=== PATIENT | male | born 1955 | race Caucasian/White ===

== ENCOUNTER → 2017-05-01 | Outpatient (CLI) | payer MEDICAID ==
[~2017-05-01] MED LIST: BISOPROLOL 5MG T5 MG PO; FUROSEMIDE80 M1 PO; GABAPENTIN300 M1 PO; GLIMEPIRIDE 4MG4 MG PO; HYDROCHLOROTHIA25 M1 PO; IBU-8800 MG PO; JANUMET 50-1,01 EACH PO; JANUMET XR1 TER PO; JANUVIA100 MG PO; KLOR-CON M2020 ME1 PO; LISINOPRIL20 MG PO; LORTAB 5/500 501 TAB PO; LORTAB 500 MG-11 TAB PO; MEDROL 4MG. DOSE4 MG PO; METFORMIN 500M500 M1 PO; NOVAPLUS SC; NOVOLIN 70/30 710 ML; OXYCODONE HCL15 MG PO; WARFARIN SOD5 M1 PO
[2017-05-01 10:38] LABS: BUN 52 mg/dL (7-18)
[2017-05-01 10:39] LABS: GFR (ESTIMATED) 36 ML/MIN (>60)
--- NOTE | 2017-05-01 16:20 | RADIOLOGY REPORT PS360 ---
CHEST(2 VIEWS-NOT PORTABLE) HISTORY: HTN,SOB,TYPE II DM short of breath Patient Age: 62 years: Male Ordering Physician: Srinivasan Sparks MD TECHNIQUE: 2 view chest COMPARISON :Portable chest 05/07/2013 FINDINGS No discrete acute findings. Slight coarsening markings suggesting mild chronic changes but nothing definitely acute. No focal pneumonia. No pleural effusion. No pneumothorax. Heart ce and mediastinal structures appear stable. Borderline cardiomegaly. Hypertrophic First rib ends bilaterally account for density here chest wall unremarkable otherwise. T-spine intact IMPRESSION: 1. stable chest with nothing definitely acute
== END ==
LOC: LAB 10:02
PROVIDERS: Internal Medicine
DX: E11.42 Type 2 diabetes mellitus with diabetic polyneuropathy (principal); E66.01 Morbid (severe) obesity due to excess calories; I10 Essential (primary) hypertension; I48.2 Chronic atrial fibrillation; R60.0 Localized edema; R06.02 Shortness of breath

== ENCOUNTER → 2017-06-05 | Outpatient (CLI) | payer MEDICAID | LOC: LAB 10:26 | DX: I10 Essential (primary) hypertension (principal); G47.62 Sleep related leg cramps; I48.2 Chronic atrial fibrillation ==

== ENCOUNTER → 2017-07-08 | Outpatient (CLI) | payer MEDICAID ==
[~2017-07-08] MED LIST changes: +JENTADUETO1 TA1 PO
[2017-07-08 09:57] LABS: BUN 74 mg/dL (7-18); GFR (ESTIMATED) 34 ML/MIN (>60)
== END ==
LOC: LAB 08:25
PROVIDERS: Internal Medicine
DX: E78.5 Hyperlipidemia, unspecified (principal); I48.2 Chronic atrial fibrillation; N18.9 Chronic kidney disease, unspecified; I10 Essential (primary) hypertension; E11.9 Type 2 diabetes mellitus without complications

== ENCOUNTER 2017-07-10 10:36 | Emergency (ER) | payer MEDICAID ==
[~2017-07-10] VITALS: Ht 195.6 cm; Wt 213.2 kg
[~2017-07-10 10:36] MED LIST changes: -JENTADUETO1 TA1 PO
--- OUTSIDE RECORDS SUMMARY | 2017-07-10 11:03 | External Medical Summary Rpt | CCD ---
Author Author Conduent Organization Condu[employer] Address Unknown Phone Unavailable Purpose Continuity of Care Document - through 2016
--- OUTSIDE RECORDS SUMMARY | 2017-07-10 11:03 | External Medical Summary Rpt | CCD ---
Author Author , XIN LAUREN Address Unknown Phone [email or web address] Care Team Providers Care Mat Cutter Name Role Phone BALTAZAR RENE MD, Unavailable Unavailable BALTAZAR RENE MD Purpose Continuity of Care Document - 05-07-2013 through 2016 Problems Code Diagnosis DOS Provider Status 250.01 250.01 DIAB 05-07-2013 [facility], [facility] [place] [facility] I [JUVENILE TYPE], NOT UNCNTRLD 401.9 401.9 05-07-2013 [facility] 427.31 427.31 05-07-2013 [facility] N Allergies, Adverse Reactions, Alerts Type Allergy to substance Drug Allergy Adverse Reaction to Substance Substance Reaction Severity INGREDIENT: NO KNOWN Unknown Mild - NO KNOWN DRUG ALLERGY Chocolate Unknown Unknown Medications Na ND Rx Da Fi Fi Am Da Di Ph RX Ph St me C No te ll ll ou ys ag ar # ys at rm s nt no ma ic us Or Da si cy ia de te s n re d Sa 63 09 0 No li 80 -0 ne 70 7- Lo 10 20 ng Fl 07 13 er us 5 h Ac 10 ti ML ve Sy ri ng e GI 12 09 0 No 32 -0 CO 22 7- Lo CK 22 20 ng TA 22 13 er IL 2 Ac 60 ti ML ve UD C PA 51 09 0 No NT 07 -0 OP 90 7- Lo RA 05 20 ng ZO 12 13 er LE 0 Ac SO ti D ve DR 40 MG TA B NI 00 09 0 No TR 07 -0 OS 10 7- Lo TA 41 20 ng T 81 13 er 0. 3 4 Ac MG ti ve TA BL ET SL 66 09 0 No PI 55 -0 RI 30 7- Lo N 00 20 ng 32 10 13 er 5 1 MG Ac ti TA ve BL ET Vital Signs 05-07-2013 13:50 Name Value Interpretat Reference Comment ion Range Body 98.1 [degF] Temperature BP 67 mm[Hg] Diastolic BP Systolic 143 mm[Hg] Heart 61 /min Rate/Pulse O2% 95 % Respiratory 20 /min Rate 05-07-2013 12:12 Name Value Interpretat Reference Comment ion Range BP 67 mm[Hg] Diastolic BP Systolic 138 mm[Hg] Heart 65 /min Rate/Pulse Respiratory 20 /min Rate 05-07-2013 11:44 Name Value Interpretat Reference Comment ion Range O2% 98 % Results Labs Lab Lab Date Result Refere Interp Status Commen Order Detail nces retati t Range on Whole blood INR measurement (07-08-2017 08:27) Prothro = 28.7 9.4-11. complet mbin 017 SECONDS 8 ed time 08:27 (PT) in platele t poor p Whole = 2.63 0.9-1.1 complet blood 017 ed INR 08:27 measure ment Comment: INDICATION INR RANGE Comment: Comment: THERAPY FOR DVT, PE, ATRIAL FIB; 2.0 - 3.0 Comment: PROPHYLAXIS FOR VTE Comment: Comment: THERAPY FOR MECHANICAL HEART 2.5 - 3.5 Comment: VALVE; PREVENTION OF SYSTEMIC Comment: EMBOLISM SECONDARY TO AMI Basic metabolic panel (07-08-2017 08:27) Serum 07-08-2 = 137 136-145 complet sodium 017 mmoL/L ed measure 08:27 ment Serum 2 = 4.9 3.5-5.1 complet potassi 017 mmoL/L ed um 08:27 measure ment Serum = 176 74-106 complet or 017 mg/dL ed plasma 08:27 glucose measure ment (mas Estimat = 34 >60 complet ed 017 ML/MIN ed glomeru 08:27 lar filtrat ion rate (GF Comment: REFERENCE RANGE: >60 ML/MIN/1.73 SQUARE METERS Comment: If this patient is -[place] Korean, then multiply the Comment: result by 1.210. Serum 2 = 2.0 0.70-1. complet or 017 mg/dL 30 ed plasma 08:27 creatin ine measure ment ( Carbon 2 = 29 21.0-32 complet dioxide 017 mmoL/L .0 ed 08:27 measure ment Serum 2 = 99 98-107 complet or 017 mmoL/L ed plasma 08:27 chlorid e measure ment (mo Serum = 9.1 8.5-10. complet or 017 mg/dL 1 ed plasma 08:27 calcium measure ment (mas Serum = 74 7-18 complet or 017 mg/dL ed plasma 08:27 urea nitroge n measure men Hemoglobin A1c in Blood (05-01-2017 10:05) Hemoglo 7.4 % 0.0% High complet bin A1c 017 - ed in 10:05 7.0% Blood Protein [Presence] in Urine (02-17-2017 17:13) Protein < 6.0 0.0mg Normal complet 017 /dL - ed [Presen 17:13 15.0m ce] in g/dL Urine Urinalysis dipstick W Reflex Microscopic panel in Urine (02-17-2017 17:13) Bacteri TRACE O complet a 017 ed [Presen 17:13 ce] in Urine sedimen t by Light microsc opy Hyaline 3-5 NONE complet casts 017 ed [Presen 17:13 ce] in Urine sedimen t by Light microsc opy Erythro 02-17- NONE 0 complet cytes 017 ed [Presen 17:13 ce] in Urine sedimen t by Light microsc opy Epithel 20-50 OCC complet ial 017 ed cells.s 17:13 quamous [Presen ce] in Urine sedimen t by Microsc opy high power field Urinalysis dipstick W Reflex Microscopic panel in Urine (02-17-2017 17:13) Appeara CLEAR CLEAR complet nce of 017 ed Urine 17:13 Bilirub NEGATIV NEG complet in 017 E ed [Presen 17:13 ce] in Urine by Test strip Erythro TRACE-L NEG complet cytes 017 YSED ed [Presen 17:13 ce] in Urine Color YELLOW YELLOW complet of 017 ed Urine 17:13 Ketones NEGATIV NEG complet 017 E ed [Presen 17:13 ce] in Urine by Automat ed test strip Mucus NEGATIV NEG complet [Presen 017 E ed ce] in 17:13 Urine sedimen t by Light microsc opy Nitrite NEGATIV NEG complet 017 E ed [Presen 17:13 ce] in Urine by Test strip Urobili 0.2 NEG complet nogen 017 ed [Presen 17:13 ce] in Urine by Test strip Hemoglobin A1c in Blood (01-23-2017 10:19) Hemoglo 7.1 % 0.0% High complet bin A1c 017 - ed in 10:19 7.0% Blood TROPONIN I (05-07-2013 13:15) TROPONI Less 0.00-0. complet N I 013 than 06 ed 13:15 0.02 ng/mL COMPREHENSIVE METABOLIC PANEL (05-07-2013 11:30) Glucose 241 74-106 complet 013 mg/dL ed Bld-mCn 11:30 c BUN 24 7-18 complet Bld-mCn 013 mg/dL ed c 11:30 Creat 1.2 0.8-1.3 complet SerPl-m 013 mg/dL ed Cnc 11:30 ESTIMAT 176 50-200 complet ED 013 ML/MIN ed CREATIN 11:30 INE CLEARAN CE GFR 63 Greater complet (ESTIMA 013 ML/MIN than ed LARY) 11:30 60 Sodium 135 136-145 complet SerPl-s 013 mmoL/L ed Cnc 11:30 Potassi 4.1 3.5-5.1 complet um 013 mmoL/L ed SerPl-s 11:30 Cnc Chlorid 98 98-107 complet e 013 mmoL/L ed SerPl-s 11:30 Cnc CO2 32 21.0-32 complet SerPl-s 013 mmoL/L .0 ed Cnc 11:30 Calcium 8.5 8.5-10. complet 013 mg/dL 1 ed SerPl-m 11:30 Cnc Prot 7.5 6.4-8.2 complet SerPl-m 013 gm/dL ed Cnc 11:30 Albumin 3.5 3.4-5.0 complet 013 gm/dL ed SerPl-m 11:30 Cnc Globuli 05-07-2 4.0 1.3-3.2 complet n 013 gm/dL ed Ser-mCn 11:30 c Albumin 05-07-2 0.9 UNK 1.1-1.8 complet /Glob 013 ed SerPl-m 11:30 Rto Bilirub 2 0.3 0.2-1.0 complet 013 mg/dL ed SerPl-m 11:30 Cnc AST 2 12 U/L 15-37 complet SerPl-c 013 ed Cnc 11:30 ALT 2 39 U/L 30-65 complet SerPl-c 013 ed Cnc 11:30 ALP 2 91 U/L 50-136 complet SerPl-c 013 ed Cnc 11:30 PROTIME/INR (05-07-2013 11:30) PROTHRO 05-07-2 25.4 9.9-11. complet MBIN 013 SECONDS 6 ed TIME 11:30 INR Bld 05-07-2 2.35 0.9-1.1 complet 013 UNK ed 11:30 CBC with AUTO DIFF (05-07-2013 11:30) WBC # -07-2 6.7 4.8-10. complet Bld 013 K/MM3 8 ed Auto 11:30 RBC # 07-2 5.14 4.6-6.2 complet Bld 013 M/mm3 ed Auto 11:30 Hgb 05-07-2 14.6 14.1-18 complet Bld-mCn 013 g/dL .0 ed c 11:30 Hct Fr 05-07-2 43.3 % 42.0-52 complet Bld 013 .0 ed 11:30 MCV RBC 05-07- 84.2 fl 82.2-97 complet 013 .8 ed 11:30 MCH RBC 05-07-2 28.3 pg 27-31.2 complet Qn 013 ed Auto 11:30 MEAN 33.6 31.8-35 complet CORPUSC 013 g/dl .4 ed ULAR 11:30 HGB CONC RDW RBC 05-07-2 16.4 % 11.5-17 complet Auto 013 .5 ed 11:30 Platele 05-07-2 169 142-424 complet t Bld 013 K/mm3 ed Ql 11:30 Manual MEAN -07-2 8.5 fl 7.4-10. complet PLATELE 013 4 ed T 11:30 VOLUME Granulo 09-07-2 54.2 % 37.0-80 complet cytes 013 .0 ed Fr Bld 11:30 Auto LYMPH % 09-07-2 32.1 % 10-50 complet 013 ed 11:30 Monocyt -07-2 11.0 % 1.7-9.3 complet es Fr 013 ed Bld 11:30 Auto Eosinop 09-07-2 1.8 % 0.1-12. complet hil Fr 013 0 ed Bld 11:30 Auto Basophi 09-07-2 0.9 % 0.1-2.0 complet ls Fr 013 ed Bld 11:30 Auto Granulo 09-07-2 3.7 1.3-8.0 complet cytes # 013 K/mm3 ed Bld 11:30 Auto Lymphoc 09-07-2 2.2 0.7-4.5 complet ytes Fr 013 K/mm3 ed Bld 11:30 Auto Monocyt 09-07-2 0.7 0.1-1.0 complet es # 013 K/mm3 ed Bld 11:30 Auto Eosinop 09-07-2 0.1 0.0-0.4 complet hil # 013 K/mm3 ed Bld 11:30 Auto Basophi 09-07-2 0.1 0-0.2 complet ls # 013 K/MM3 ed Bld 11:30 Auto MONOSCREEN (05-07-2013 11:30) MONOSCR -07-2 NEGATIV NEG complet EEN 013 E ed 11:30 Encounters Encounter Start End Date Code Location Performer Type Date Emergency ELINOR RENE (ER) 3 12:37 3 13:59 [facility] BALTAZAR
--- OUTSIDE RECORDS SUMMARY | 2017-07-10 11:03 | External Medical Summary Rpt | CCD ---
Demographics Preferred Language Thai Marital Status Unknown Yarsanism Affiliation Unknown Race Unknown Ethnic Group Unknown Author Author , XIN LAUREN Address Unknown Phone [email or web address] Immunization Name Date Rout CVX Reac Dose Comm Prov Is Faci e tion ent ider Refu lity Give sed n Td 03-0 9 999 Hist H149 No H149 (candice 5-19 ori lt), 97 al Info adso rmat rbed ion - Sour ce Unsp ecif ied
--- OUTSIDE RECORDS SUMMARY | 2017-07-10 11:03 | External Medical Summary Rpt | CCD ---
Demographics Preferred Language Monegasque Marital Status Unknown Sabianism Affiliation Unknown Race Unknown Ethnic Group Unknown Author Author , XIN LAUREN Address Unknown Phone [email or web address] Immunization Name Date Rout CVX Reac Dose Comm Prov Is Faci e tion ent ider Refu lity Give sed n Td 03-0 9 999 Hist H149 No H149 (candice 5-19 ori lt), 97 al Info adso rmat rbed ion - Sour ce Unsp ecif ied
--- OUTSIDE RECORDS SUMMARY | 2017-07-10 11:03 | External Medical Summary Rpt | CCD ---
Author Author , XIN LAUREN Address Unknown Phone [email or web address] Care Supervisor Cell Operation Name Role Phone BALTZAAR RENE MD, Unavailable Unavailable BALTAZAR RENE MD Purpose Continuity of Care Document - 05-07-2013 through 2016 Problems Code Diagnosis DOS Provider Status 250.01 250.01 DIAB 05-07-2013 [facility] I [JUVENILE TYPE], NOT UNCNTRLD 401.9 401.9 05-07-2013 [facility] 427.31 427.31 05-07-2013 [facility] N Allergies, Adverse Reactions, Alerts Type [...] SQUARE METERS Comment: If this patient is -Greek, then multiply the Comment: result by 1.210. [...] ELINOR RENE (ER) 3 12:37 3 13:59 [facility] BALTAZAR
--- OUTSIDE RECORDS SUMMARY | 2017-07-10 11:04 | External Medical Summary Rpt ---
Author Author XIN Gumaro, [employer] Organization [employer] Address Unknown Phone Unavailable Results Basic metabolic panel in Blood Observa Value Referen Units Interpr Notes Date tion ce etation Range Urea 7 - 18 mg/dL High No Jul 08 nitrogen informati 2016 8:27 [Mass/vol on in AM ume] in source Serum or data Plasma Calcium 8.5 - mg/dL Normal No Jul 08 [Mass/vol 10.1 informati 2016 8:27 ume] in on in AM Serum or source Plasma data Chloride 98 - 107 mmoL/L Normal No Jul 08 [Moles/vo informati 2016 8:27 lume] in on in AM Serum or source Plasma data Carbon 21.0 - mmoL/L Normal No Jul 08 dioxide, 32.0 informati 2016 8:27 total on in AM [Moles/vo source lume] in data Serum or Plasma Creatinin 0.70 - mg/dL High No Jul 08 e 1.30 informati 2016 8:27 [Mass/vol on in AM ume] in source Serum or data Plasma Estimated >60 ML/MIN No REFERENCE Jul 08 informati RANGE: 2017 8:27 glomerula on in >60 AM r source ML/MIN/1. filtratio data 73 SQUARE n rate METERSIf (GF this patient is -A merican, then multiply theresult by 1.210. Glucose 74 - 106 mg/dL High No Jul 08 [Mass/vol informati 2016 8:27 ume] in on in AM Serum or source Plasma data Potassium 3.5 - 5.1 mmoL/L Normal No Jul 08 informati 2016 8:27 [Moles/vo on in AM lume] in source Serum or data Plasma Sodium 136 - 145 mmoL/L Normal No Jul 08 [Moles/vo informati 2016 8:27 lume] in on in AM Serum or source Plasma data INR in Blood by Coagulation assay Observa Value Referen Units Interpr Notes Date tion ce etation Range INR in 0.9 - 1.1 No High INDICATIO Jul 08 Blood by informati N 2016 8:27 Coagulati on in AM on assay source INR data RANGETHER APY FOR DVT, PE, ATRIAL FIB; 2.0 - 3.0PROPHY LAXIS FOR VTETHERAP Y FOR MECHANICA L HEART 2.5 - 3.5VALVE; PREVENTIO N OF SYSTEMICE MBOLISM SECONDARY TO AMI Prothromb 9.4 - SECONDS High No Jul 08 in time 11.8 informati 2016 8:27 (PT) in on in AM Platelet source poor data plasma by Coagulati on assay INR in Blood by Coagulation assay Observa Value Referen Units Interpr Notes Date tion ce etation Range INR in 0.9 - 1.1 No High INDICATIO May 6 Blood by informati N 2016 Coagulati on in 10:27 AM on assay source INR data RANGETHER APY FOR DVT, PE, ATRIAL FIB; 2.0 - 3.0PROPHY LAXIS FOR VTETHERAP Y FOR MECHANICA L HEART 2.5 - 3.5VALVE; PREVENTIO N OF SYSTEMICE MBOLISM SECONDARY TO AMI Prothromb 9.4 - SECONDS High No Jun 05 in time 11.8 informati 2016 (PT) in on in 10:27 AM Platelet source poor data plasma by Coagulati on assay Hemoglobin A1c in Blood Observa Value Referen Units Interpr Notes Date tion ce etation Range Hemoglo 7.4 0.0 - % High < 6% Sep 1 bin A1c 7.0 [facility] Blood LEVEL< AM 7% CONTROL LED DIABETI C LEVEL> 8% POORLY CONTROL LED DIABETI C LEVEL INR in Blood by Coagulation assay Observa Value Referen Units Interpr Notes Date tion ce etation Range INR in 0.9 - 1.1 No High INDICATIO Sep 1 Blood by informati N 2016 Coagulati on in 10:05 AM on assay source INR data RANGETHER APY FOR DVT, PE, ATRIAL FIB; 2.0 - 3.0PROPHY LAXIS FOR VTETHERAP Y FOR MECHANICA L HEART 2.5 - 3.5VALVE; PREVENTIO N OF SYSTEMICE MBOLISM SECONDARY TO AMI Prothromb 9.4 - SECONDS High No Sep 1 in time 11.8 informati 2016 (PT) in on in 10:05 AM Platelet source poor data plasma by Coagulati on assay INR in Blood by Coagulation assay Observa Value Referen Units Interpr Notes Date tion ce etation Range INR in 0.9 - 1.1 No High INDICATIO Mar 26 Blood by informati N 2016 5:15 Coagulati on in PM on assay source INR data RANGETHER APY FOR DVT, PE, ATRIAL FIB; 2.0 - 3.0PROPHY LAXIS FOR VTETHERAP Y FOR MECHANICA L HEART 2.5 - 3.5VALVE; PREVENTIO N OF SYSTEMICE MBOLISM SECONDARY TO AMI Prothromb 9.4 - SECONDS High No Mar 26 in time 11.8 informati 2016 5:15 (PT) in on in PM Platelet source poor data plasma by Coagulati on assay INR in Blood by Coagulation assay Observa Value Referen Units Interpr Notes Date tion ce etation Range INR in 0.9 - 1.1 No High INDICATIO Mar 12 Blood by informati N 2016 1:43 Coagulati on in PM on assay source INR data RANGETHER APY FOR DVT, PE, ATRIAL FIB; 2.0 - 3.0PROPHY LAXIS FOR VTETHERAP Y FOR MECHANICA L HEART 2.5 - 3.5VALVE; PREVENTIO N OF SYSTEMICE MBOLISM SECONDARY TO AMI Prothromb 9.4 - SECONDS High No Mar 12 in time 11.8 informati 2016 1:43 (PT) in on in PM Platelet source poor data plasma by Coagulati on assay INR in Blood by Coagulation assay Observa Value Referen Units Interpr Notes Date tion ce etation Range INR in 0.9 - 1.1 No High DONE ON Mar 05 Blood by informati THE 2016 5:51 Coagulati on in [id number] PM on assay source CATION data INR RANGETHER APY FOR DVT, PE, ATRIAL FIB; 2.0 - 3.0PROPHY LAXIS FOR VTETHERAP Y FOR MECHANICA L HEART 2.5 - 3.5VALVE; PREVENTIO N OF SYSTEMICE MBOLISM SECONDARY TO AMI Prothromb 9.4 - SECONDS High No Mar 05 in time 11.8 informati 2016 5:51 (PT) in on in PM Platelet source poor data plasma by Coagulati on assay INR in Blood by Coagulation assay Observa Value Referen Units Interpr Notes Date tion ce etation Range INR in 0.9 - 1.1 No High INDICATIO Feb 26 Blood by informati N 2016 5:59 Coagulati on in PM on assay source INR data RANGETHER APY FOR DVT, PE, ATRIAL FIB; 2.0 - 3.0PROPHY LAXIS FOR VTETHERAP Y FOR MECHANICA L HEART 2.5 - 3.5VALVE; PREVENTIO N OF SYSTEMICE MBOLISM SECONDARY TO AMI Prothromb 9.4 - SECONDS High No Jan 29 in time 11.8 informati 2016 5:59 (PT) in on in PM Platelet source poor data plasma by Coagulati on assay Creatinine [Mass/volume] in Urine Observa Value Referen Units Interpr Notes Date tion ce etation Range Creatinin 20 - 370 mg/dL Normal No Jan 20 e informati 2017 5:13 [Mass/vol on in PM ume] in source Urine data Protein [Presence] in Urine Observa Value Referen Units Interpr Notes Date tion ce etation Range Protein < 6.0 0.0 - mg/dL Normal No Feb 17 15.0 informa 2016 [Presen tion in 5:13 PM ce] in source Urine data Renal function 2000 panel in Serum or Plasma Observa Value Referen Units Interpr Notes Date tion ce etation Range Albumin 3.4 - 5.0 gm/dL Normal No Jan 20 [Mass/vol informati 2016 5:13 ume] in on in PM Serum or source Plasma data Urea 7 - 18 mg/dL High No Jan 20 nitrogen informati 2016 5:13 [Mass/vol on in PM ume] in source Serum or data Plasma Calcium 8.5 - mg/dL Normal No Feb 17 [Mass/vol 10.1 informati 2017 5:13 ume] in on in PM Serum or source Plasma data Chloride 98 - 107 mmoL/L Normal No Jan 20 [Moles/vo informati 2017 5:13 lume] in on in PM Serum or source Plasma data Carbon 21.0 - mmoL/L High No Feb 17 dioxide, 32.0 informati 2017 5:13 total on in PM [Moles/vo source lume] in data Serum or Plasma Creatinin 0.70 - mg/dL High No Jan 20 e 1.30 informati 2017 5:13 [Mass/vol on in PM ume] in source Serum or data Plasma Estimated >60 ML/MIN No REFERENCE Jose 20 informati RANGE: 2017 5:13 glomerula on in >60 PM r source ML/MIN/1. filtratio data 73 SQUARE n rate METERSIf (GF this patient is -A merican, then multiply theresult by 1.210. Glucose 74 - 106 mg/dL High No Feb 17 [Mass/vol informati 2017 5:13 ume] in on in PM Serum or source Plasma data Potassium 3.5 - 5.1 mmoL/L Normal No Feb 17 informati 2016 5:13 [Moles/vo on in PM lume] in source Serum or data Plasma Sodium 136 - 145 mmoL/L Normal No Feb 17 [Moles/vo informati 2017 5:13 lume] in on in PM Serum or source Plasma data Phosphate 2.4 - 4.9 mg/dL Normal No Feb 17 informati 2016 5:13 [Moles/vo on in PM lume] in source Unspecifi data ed specimen Urinalysis dipstick W Reflex Microscopic panel in Urine Observa Value Referen Units Interpr Notes Date tion ce etation Range Appeara CLEAR CLEAR No No No Feb 17 nce of informa informa informa 2017 Urine tion in tion in tion in 5:13 PM source source source data data data Bacteri TRACE O No No No Feb 17 a informa informa informa 2016 [Presen tion in tion in tion in 5:13 PM ce] in source source source Urine data data data sedimen t by Light microsc opy Bilirub NEGATIV NEG No No No Feb 17 in E informa informa informa 2016 [Presen tion in tion in tion in 5:13 PM ce] in source source source Urine data data data by Test strip Erythro TRACE-L NEG No No No Feb 17 cytes YSED informa informa informa 2016 [Presen tion in tion in tion in 5:13 PM ce] in source source source Urine data data data Color YELLOW YELLOW No No No Feb 17 of informa informa informa 2017 Urine tion in tion in tion in 5:13 PM source source source data data data Glucose NEG No High No Feb 17 [Mass/vol informati informati 2017 5:13 ume] in on in on in PM Urine by source source Test data data strip Hyaline 3-5 NONE #/lpf No No Feb 17 casts informa informa 2017 [Presen tion in tion in 5:13 PM ce] in source source Urine data data sedimen t by Light microsc opy Ketones NEGATIV NEG mg/dL No No Feb 17 E informa informa 2016 [Presen tion in tion in 5:13 PM ce] in source source Urine data data by Automat ed test strip Mucus NEGATIV NEG No No No Feb 17 [Presen E informa informa informa 2016 ce] in tion in tion in tion in 5:13 PM Urine source source source sedimen data data data t by Light microsc opy Nitrite NEGATIV NEG No No No Feb 17 E informa informa informa 2016 [Presen tion in tion in tion in 5:13 PM ce] in source source source Urine data data data by Test strip pH of 5.0 - 8.5 No Normal No Feb 17 Urine informati informati 2017 5:13 on in on in PM source source data data Protein NEG mg/dL No No Feb 17 [Mass/vol informati informati 2017 5:13 ume] in on in on in PM Urine by source source Automated data data test strip Erythro NONE 0 rbc/hpf No No Feb 17 cytes informa informa 2016 [Presen tion in tion in 5:13 PM ce] in source source Urine data data sedimen t by Light microsc opy Specific 1.005 - No Normal No Feb 17 gravity 1.030 informati informati 2017 5:13 of Urine on in on in PM source source data data Epithel 20-50 OCC #/hpf No No Feb 17 ial informa informa 2017 cells.s tion in tion in 5:13 PM quamous source source data data [Presen ce] in Urine sedimen t by Microsc opy high power field Urobili 0.2 NEG E.U./dL No No Feb 17 nogen informa informa 2016 [Presen tion in tion in 5:13 PM ce] in source source Urine data data by Test strip Leukocyte O wbc/hpf No No Feb 17 s informati informati 2017 5:13 [#/volume on in on in PM ] in source source Urine data data Urinalysis dipstick W Reflex Microscopic panel in Urine Observa Value Referen Units Interpr Notes Date tion ce etation Range Appeara CLEAR CLEAR No No No Feb 17 nce of informa informa informa 2017 Urine tion in tion in tion in 5:13 PM source source source data data data Bilirub NEGATIV NEG No No No Feb 17 in E informa informa informa 2016 [Presen tion in tion in tion in 5:13 PM ce] in source source source Urine data data data by Test strip Erythro TRACE-L NEG No No No Feb 17 cytes YSED informa informa informa 2016 [Presen tion in tion in tion in 5:13 PM ce] in source source source Urine data data data Color YELLOW YELLOW No No No Feb 17 of informa informa informa 2017 Urine tion in tion in tion in 5:13 PM source source source data data data Glucose NEG No High No Feb 17 [Mass/vol informati informati 2017 5:13 ume] in on in on in PM Urine by source source Test data data strip Ketones NEGATIV NEG mg/dL No No Feb 17 E informa informa 2016 [Presen tion in tion in 5:13 PM ce] in source source Urine data data by Automat ed test strip Mucus NEGATIV NEG No No No Feb 17 [Presen E informa informa informa 2016 ce] in tion in tion in tion in 5:13 PM Urine source source source sedimen data data data t by Light microsc opy Nitrite NEGATIV NEG No No No Feb 17 E informa informa informa 2016 [Presen tion in tion in tion in 5:13 PM ce] in source source source Urine data data data by Test strip pH of 5.0 - 8.5 No Normal No Feb 17 Urine informati informati 2017 5:13 on in on in PM source source data data Protein NEG mg/dL No No Feb 17 [Mass/vol informati informati 2017 5:13 ume] in on in on in PM Urine by source source Automated data data test strip Specific 1.005 - No Normal No Feb 17 gravity 1.030 informati informati 2017 5:13 of Urine on in on in PM source source data data Urobili 0.2 NEG E.U./dL No No Jan 20 nogen informa informa 2016 [Presen tion in tion in 5:13 PM ce] in source source Urine data data by Test strip INR in Blood by Coagulation assay Observa Value Referen Units Interpr Notes Date tion ce etation Range INR in 0.9 - 1.1 No High INDICATIO Feb 17 Blood by informati N 2016 5:13 Coagulati on in PM on assay source INR data RANGETHER APY FOR DVT, PE, ATRIAL FIB; 2.0 - 3.0PROPHY LAXIS FOR VTETHERAP Y FOR MECHANICA L HEART 2.5 - 3.5VALVE; PREVENTIO N OF SYSTEMICE MBOLISM SECONDARY TO AMI Prothromb 9.4 - SECONDS High No Feb 17 in time 11.8 informati 2016 5:13 (PT) in on in PM Platelet source poor data plasma by Coagulati on assay CBC W Auto Differential panel in Blood Observa Value Referen Units Interpr Notes Date tion ce etation Range Basophils 0 - 0.2 K/MM3 Normal No Feb 17 informati 2016 5:13 [#/volume on in PM ] in source Blood by data Automated count Basophils 0.1 - 2.0 % Normal No Feb 17 /100 informati 2016 5:13 leukocyte on in PM s in source Blood by data Automated count Eosinophi 0.0 - 0.4 K/mm3 Normal No Feb 17 ls informati 2016 5:13 [#/volume on in PM ] in source Blood by data Automated count Eosinophi 0.1 - % Normal No Feb 17 ls/100 12.0 informati 2016 5:13 leukocyte on in PM s in source Blood by data Automated count Granulocy 1.3 - 8.0 K/mm3 Normal No Feb 17 kyleigh informati 2016 5:13 [#/volume on in PM ] in source Blood by data Automated count Granulocy 37.0 - % Normal No Feb 17 kyleigh/100 80.0 informati 2016 5:13 leukocyte on in PM s in source Blood by data Automated count Hematocri 42.0 - % Low No Feb 17 t [Volume 52.0 informati 2016 5:13 on in PM Fraction] source of Blood data Hemoglobi 14.1 - g/dL Low No Feb 17 n 18.0 informati 2016 5:13 [Mass/vol on in PM ume] in source Blood data Lymphocyt 0.7 - 4.5 K/mm3 Normal No Feb 17 es informati 2016 5:13 [#/volume on in PM ] in source Unspecifi data ed specimen by Automated count Lymphocyt 10 - 50 % Normal No Feb 17 es 2016 5:13 [#/volume on in PM ] in source Unspecifi data ed specimen by Automated count Erythrocy 27 - 31.2 pg Normal No Feb 17 te mean inform2016 5:13 corpuscul on in PM ar source hemoglobi data n [Entitic mass] Erythrocy 31.8 - g/dl Normal No Feb 17 te mean 35.4 inform2016 5:13 corpuscul on in PM ar source hemoglobi data n concentra tion [Mass/vol ume] by Automated count Erythrocy 82.2 - fl Normal No Feb 17 te mean 97.8 informati 2016 5:13 corpuscul on in PM ar volume source [Entitic data volume] by Automated count Monocytes 0.1 - 1.0 K/mm3 High No Feb 17 inform2016 5:13 [#/volume on in PM ] in source Blood by data Automated count Monocytes 1.7 - 9.3 % High No Jan 20 /100 inform2016 5:13 leukocyte on in PM s in source Blood by data Automated count Platelet 7.4 - fl Normal No Feb 17 mean 10.4 informati 2016 5:13 volume on in PM [Entitic source volume] data in Blood by Automated count Platelets 142 - 424 K/mm3 Normal No Feb 17 inform2016 5:13 [#/volume on in PM ] in source Blood data Erythrocy 4.6 - 6.2 M/mm3 Low No Feb 17 kyleigh inform2016 5:13 [#/volume on in PM ] in source Amniotic data fluid Erythrocy 11.5 - % Normal No Feb 17 te 17.5 informati 2016 5:13 distribut on in PM ion width source [Entitic data volume] by Automated count Leukocyte 4.8 - K/MM3 Normal No Feb 17 s 10.8 informati 2016 5:13 [#/volume on in PM ] in source Blood data INR in Blood by Coagulation assay Observa Value Referen Units Interpr Notes Date tion ce etation Range INR in 0.9 - 1.1 No High INDICATIO January 23 Blood by informati N 2016 Coagulati on in 10:19 AM on assay source INR data RANGETHER APY FOR DVT, PE, ATRIAL FIB; 2.0 - 3.0PROPHY LAXIS FOR VTETHERAP Y FOR MECHANICA L HEART 2.5 - 3.5VALVE; PREVENTIO N OF SYSTEMICE MBOLISM SECONDARY TO AMI Prothromb 9.4 - SECONDS High No January 23 in time 11.8 informati 2017 (PT) in on in 10:19 AM Platelet source poor data plasma by Coagulati on assay Hemoglobin A1c in Blood Observa Value Referen Units Interpr Notes Date tion ce etation Range Hemoglo 7.1 0.0 - % High < 6% January 23 bin A1c 7.0 NON-TONYA 2017 in [facility] 10:19 Blood LEVEL< AM 7% CONTROL LED DIABETI C LEVEL> 8% POORLY CONTROL LED DIABETI C LEVEL
--- OUTSIDE RECORDS SUMMARY | 2017-07-10 11:04 | External Medical Summary Rpt ---
[...] 1 bin [facility]1c 7.0 [facility] Blood LEVEL< AM 7% CONTROL LED [...] informati THE 2016 5:51 Coagulati on in [id number] PM on assay source CATION data INR [...]
[2017-07-10 11:05] LABS: HEMOGLOBIN 12.2 g/dL (14.1-18.0); LYMPH # 1.4 K/mm3 (0.7-4.5); LYMPH % 15.1 % (10-50)
[2017-07-10 11:48] LABS: BUN 72 mg/dL (7-18); GFR (ESTIMATED) 29 ML/MIN (>60)
--- NOTE | 2017-07-10 12:25 | Emergency Room Report ---
History of Present Illness Time Seen by 1100 Presenting Problem in Triage Pt arrived:Wheelchair Presenting Problem:PT SENT FROM PCP OFFICE R/T ELEVATED HR AND SOA. PT REPORTS WOKE UP FEELING SOA AND WEAK THIS MORNING. 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 N Clinical Suspician of Infection? N Mental Status: 1 - Regular (Normal Baseline) Sepsis Risk:Possible Sepsis Risk Have you (or family members/close friends) recently traveled outside the [place]? N If Yes, where/when: Have you had exposure to infectious disease within the past month? N TB? Other? Specify: Source patient, RN notes reviewed Exam Limitations no limitations Comment Pt states he woke up this AM with a rapid HR and SOA and weakness but no Chest pain. He has a history of AFib for 2 years and is on Warfarin. He is also a Diabetic and Glucose sthis AM was 169 He denies any fever . He was in AFib with RVR of 119 when he came in and then dropped HR into the 40's and is now in the 80 with NSR. His biggest complaint is sciatica type pain on the left side and he has had surgery on his back before Cardiac Chest Pain Chest pain indicative of cardiac No ALLERGIES Coded Allergies: CHOCOLATE (FOOD) (SNEEZE 11/03/15) Home Medications Reported Medications Lisinopril 40 MG PO DAILY Glimepiride (Glimepiride 4MG Tablet) 4 MG PO DAILY Warfarin Sodium 3 MG PO DAILY HYDROCHLOROTHIAZIDE (Hydrochlorothiazide) 25 MG PO DAILY INSULIN NPH HUM/REG INSULIN HM (Novolin 70-30 100 Unit/Ml Vial) Furosemide 40 MG PO DAILY #30 Potassium Chloride (Klor-Con M20) 10 MEQ PO DAILY #30 Gabapentin 300 MG PO BID #90 BISOPROLOL FUMARATE (Bisoprolol 5MG) 5 MG PO DAILY #30 TAB OXYCODONE HCL (Oxycodone Hcl) 15 MG PO QID #120 LINAGLIPTIN/METFORMIN HCL (Jentadueto 2.5 MG-850 MG Tab) 1 TAB PO BID #60 History Medical History General CAD? No Angina: Yes SD: No Hypertension? Yes Hyperlipidemia? No CHF? No DVT? No PE? No COPD? No Asthma? No Anemia? No GERD? No Gastric ulcers? No GI Bleed? No Hernia? No Thyroid Problems? No Hypothyroidism? No CVA? No Seizures? No Diabetes? Yes Insulin Dependent: Yes Insulin Pump: No Home FSBS? Yes Renal Insuffiency? No End Stage Renal Disease? No UTI? No Stones? No BPH? No GB Disease: No Nephritic Syndrome? No Asplenia? No Hepatitis? No Sickle Cell Disease? No Arthritis? No Migraines? No Cataracts? No Glaucoma? No MRSA? No HIV? No TB? No Anxiety? No Depression? No Cancer? No More? Yes Additional hx: AFIB Immunization Hx DT/Tetanus 05/03/2006 Flu Refused Pneumonia Refuses Surgical Hx Previous Surgery?Y Back LT ANKLE-PLATE Family History Family Hx Diabetes Yes CAD Yes Hypertension Yes Hyperlipidemia No Cancer Yes TB No Social History Smoking Hx Smoker: Never Smoker Tobacco: No Alcohol Alcohol: No Review of Systems All Other Systems Reviewed and Negative Constitutional see HPI Respiratory see HPI Cardiovascular see HPI Physical Exam Vital Signs Vital Signs Date Time Temp Pulse Resp B/P Pulse O2 O2 Flow FiO2 Ox Delivery Rate 07/10 1443 75 22 111/52 96 07/10 1357 75 22 133/98 98 07/10 1325 72 22 129/56 98 07/10 1247 88 22 130/60 97 07/10 1157 84 22 130/57 99 07/10 1036 98.3 133 22 199/136 97 - WBC >12,000 or <4,000 or 10% bands? 2 or more SIRS Criteria Met? B/P:130/57 MAP:157 Creatinine >2.0? UA output<0.5ml/kg/hr for 2 hrs? Platelet count >100,000? Lactate >2.0mmol/1? INR >1.2 or PTT > than 60 sec? Evidence of Organ Dysfunction? Provider documented clinical suspician of infection? N Sepsis Criteria Count: 2 Sepsis Risk: Possible Sepsis Risk General Appearance no apparent distress, obese Respiratory Status No: respiratory distress. Lung Sounds bilateral: rhonchi. 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 No Results/Orders Laboratory Tests 07/10/17 1447: Lactic Acid Pending 07/10/17 1405: Influenza Type A Ag NOT DETECTED, Influenza Type B Ag NOT DETECTED 07/10/17 1243: POC Glucose 270 H 07/10/17 1050: Lactic Acid 2.2 H 07/10/17 1050: B-Natriuretic Peptide 16 07/10/17 1050: Sodium 133 L, Potassium 4.9, Chloride 97 L, Carbon Dioxide 30, BUN 72 H, Creatinine 2.3 H, Estimated Creat Clear 103, Estimated GFR (MDRD) 29, Glucose 264 H, Calcium 9.0, Total Bilirubin 0.4, AST 13 L, ALT 19, Alkaline Phosphatase 71, Creatine Kinase 249, CK-MB (CK-2) Rel Index 0.5, CK and CKMB Interp 1.3, Troponin I < 0.02, Total Protein 7.7, Albumin 3.5, Globulin 4.2 H, Albumin/Globulin Ratio 0.8 L, WBC 9.2, RBC 4.27 L, Hgb 12.2 L, Hct 36.0 L, MCV 84.3, RDW 15.1, Plt Count 173, MPV 8.6, Gran % 66.3, Gran # 6.1, Lymphocytes % 15.1, Monocytes % 16.3 H, Eosinophils % 2.0, Basophils % 0.3, Lymphocytes # 1.4, Monocytes # 1.5 H, Eosinophils # 0.2, Basophils # 0.0, PUBS MCHC 34.0, MCH 28.7 Current Medication Orders Sig/Jono Start time Last Medication Dose Route Stop Time Status Admin Sodium Chloride 10 ML PRN PRN 07/10 1045 AC IV 07/11 1042 Orders Procedure Date/time Status CULTURE, THROAT 07/10 1405 Active STREP SCREEN THROAT 07/10 1401 Complete INFLUENZA A&B ANTIGENS 07/10 1401 Complete FINGERSTICK BLOOD SUGAR 07/10 1243 Complete BRAIN NATRIURETIC PEPTIDE 07/10 1225 Complete LACTIC ACID FOLLOW UP 07/10 1129 Active LACTIC ACID 07/10 1052 Complete ELECTROCARDIOGRAM REQUEST 07/10 1043 Active IV SALINE LOCK 07/10 1043 Active CBC WITH AUTO DIFF 07/10 1043 Complete CARDIAC ENZYMES 07/10 1043 Complete CHEM 12 PROFILE 07/10 1043 Complete 12 LEAD EKG-BESSON (INITIAL) 07/10 UNK Active Departure Departure Time of Disposition 1456 Disposition DC Home or Self Care(routine) Clinical Impression Primary Impression: Chronic atrial fibrillation with rapid ventricular response Secondary Impressions: Diabetes mellitus type 2 in obese, Sciatica of left side Condition STABLE Referrals Bridger MULLINS,Srinivasan Tamayo (Family): 3 Days-Call Office Patient Instructions Atrial Fibrillation, DI for Atrial Fibrillation, DI for Back Pain With Sciatica, DI for Diabetes Type 2, DI for Sciatica, Sciatica, Sciatica (Alternative Therapy), Type 2 Diabetes Additional Instructions advised to followup with Dr. Sparks to get an MRI of his back and to continue regulation ofhis medicines Discharge Counseling Counseled pt/family regarding diagnosis, test results, home care, follow up needs, alcohol counseling,> 3min ED Critical Care Critical Care No If Critical Care minutes are documented, the time involved in the performance of seperately reportable procedures was not counted toward critical care time documented. I directly delivered medical care to this critically ill and/or injured patient. Timely evaluation and treatment was necessary to address the significant organ system(s) dysfunction present in this patient. at [id number]
--- NOTE | 2017-07-10 12:54 | RADIOLOGY REPORT PS360 ---
CHEST-PORTABLE HISTORY: Shortness of air SOA ORDERING PHYSICIAN: Gilberto Leigh MD PATIENT AGE: 62 years COMPARISON: 05/01/2017 FINDINGS: The cardiomediastinal silhouette and pulmonary vascularity are within normal limits. The lungs are clear without infiltrates, suspicious nodules, or pleural effusions. No acute bony abnormalities. IMPRESSION: Negative chest, no acute finding
[2017-07-10] MEDS ORDERED: JENTADUETO1 TA1 PO (12:59)
[2017-07-10 14:23] LABS: STREP SCREEN (RAPID) NEGATIVE
[2017-07-10 15:17] VITALS: BP 127/63
== END 2017-07-10 15:17 | disposition home or self-care (01) ==
LOC: ER 10:36
PROVIDERS: General Practice
DX: I48.2 Chronic atrial fibrillation (principal); Z79.01 Long term (current) use of anticoagulants; M54.32 Sciatica, left side; E66.9 Obesity, unspecified; Z68.43 Body mass index [BMI] 50.0-59.9, adult; I10 Essential (primary) hypertension; E11.9 Type 2 diabetes mellitus without complications; Z79.4 Long term (current) use of insulin

== ENCOUNTER → 2017-08-03 | Outpatient (CLI) | payer MEDICAID ==
[~2017-08-03] MED LIST changes: +JENTADUETO1 TA1 PO
--- NOTE | 2017-08-03 20:11 | RADIOLOGY REPORT PS360 ---
PROCEDURE: 2-D M-mode and color Doppler study INDICATIONS FOR THE TEST: Chest pain + COPD Heart Murmur Tobacco Smoking Palpitations Fatigue Syncope Edema+ Hypertension+Diabetes Mellitus+ Rheumatic Fever SOB+BARR Obesity+Hyperlipidemia Family History HD Additional History CATH SCHEDULED 08/11/17 AT , [facility] PATIENT INFORMATION HEIGHT: 77 WEIGHT:470 GENDER: Male B/P:140/70 2-D/M-MODE INTERPRETATION: 2-D MEASUREMENTS OBSERVED VALUES IN CMS Right Ventricular Dimension (RVDd) 3.8 Interventricular Septum (Thickness)(IVsd) 1.5 Left Ventricular Internal Dimensions(LVIDd) 4.5 Left Ventricular Posterior Wall (Thickness)(LVPWd) 1.5 Aortic Root 3.5 Aortic Cusp Separation 2.2 Left Atrial Dimensions (LAD) 4.6 2D 1. This is technically very difficult study because of the patient's factor and poor acoustic windows, endocardial surfaces and valvular structures are not well visualized. 2. Probably preserved left ventricular systolic function, and apical four-chamber view visually estimated ejection fraction is approximately 50%. 3. The valvular structures are poorly visualized. 4. There is no significant pericardial effusion noted DOPPLER INTERROGATION: Doppler interrogation is suboptimal, however it is not indicative off severe valvular disease. CONCLUSION: 1. Technically very suboptimal and poor studies clinically indicated transesophageal echocardiogram is recommended 2. Probably preserved left ventricular systolic function 3. No significant pericardial effusion noted.
== END ==
LOC: RT 07:51
DX: I48.91 Unspecified atrial fibrillation (principal); I20.9 Angina pectoris, unspecified; I45.10 Unspecified right bundle-branch block; R94.31 Abnormal electrocardiogram [ECG] [EKG]; E11.9 Type 2 diabetes mellitus without complications; E66.9 Obesity, unspecified